=== PATIENT | male | born 1990 | race African-American/Black ===

== ENCOUNTER 2017-08-24 16:23 | Emergency (ER) | payer OTHER ==
[~2017-08-24] VITALS: Ht 182.9 cm; Wt 81.6 kg
[2017-08-24] MEDS ORDERED: Mylanta II UD 30ml ORAL ONE (16:45)
[2017-08-24] MEDS ORDERED: Lidocaine 2% Visc 15ml soln ORAL ONE (16:45)
[2017-08-24] MEDS ORDERED: Dicyclomine HCl 10mg/5ml oral soln ORAL ONE (16:45)
[2017-08-24] MEDS ORDERED: PEPCID40 MG PO (17:19)
[2017-08-24] MEDS ORDERED: ZOFRAN ODT4 MG ORAL (17:19)
[2017-08-24 17:22] VITALS: BP 138/88
[2017-08-24 17:25] VITALS: BP 137/78
--- NOTE | 2017-08-24 17:52 | Emergency Room Report ---
History of Present Illness General Chief Complaint: Abdominal Pain Source: Patient Present Illness HPI 26YOM [employer] patient with left sided abd pain, nausea/vomiting after eating bbq chicken pizza and nachos/cheese earlier this morning Patient woke up from nap with abd pain, vomiting Improved symptoms after vomiting once Tolerating PO in ED No foreign travel, sick contacts No other medical problems Allergies: Coded Allergies: No Known Allergies (Unverified , 08/24/17) Patient History Past Medical History: none Past Surgical History: none Pertinent Family History: none Social History: Denies: smoking, alcohol use, drug use Immunizations: UTD Reviewed Nursing Documentation: PMH: Agreed, PSxH: Agreed Nursing Documentation-PMH Hx Cardiac Problems: No Hx Hypertension: No Hx Pacemaker: No Hx Asthma: No Hx COPD: No Hx Diabetes: No Hx Cancer: No Hx Gastrointestinal Problems: No Hx Dialysis: No History Of Psychiatric Problem: No Hx Neurological Problems: No Hx Cerebrovascular Accident: No Hx Seizures: No Review of Systems All Other Systems: negative except mentioned in HPI Physical Exam Vital Signs Date Time Temp Pulse Resp B/P (MAP) Pulse Ox O2 Delivery O2 Flow Rate FiO2 08/24/17 16:28 97.9 63 19 160/98 99 Room Air Sp02 EP Interpretation: reviewed, normal General Appearance: normal inspection, well appearing, no apparent distress, alert, GCS 15, non-toxic Head: normocephalic, atraumatic Eyes: bilateral eye PERRL, bilateral eye EOMI ENT: normal ENT inspection, hearing grossly normal, normal voice Neck: normal inspection, full range of motion, supple, no bony tend Respiratory: normal inspection, lungs clear, normal breath sounds, no respiratory distress, no retraction, no wheezing Cardiovascular #1: regular rate, rhythm, no edema Gastrointestinal: normal inspection, normal bowel sounds, non tender, soft, no guarding, no hernia Genitourinary: no CVA tenderness Musculoskeletal: normal inspection, back normal, normal range of motion, Flaco' s Sign negative Neurologic: normal inspection, alert, oriented x3, responsive, nuclear station operator III-XII nml as tested, motor strength/tone normal, speech normal Psychiatric: normal inspection, judgement/insight normal, mood/affect normal Skin: normal inspection, normal color, no rash Lymphatic: normal inspection Medical Decision Making Diagnostic Impression: Primary Impression: Food poisoning Qualified Codes: T62.91XA - Toxic effect of unspecified noxious substance eaten as food, accidental (unintentional), initial encounter ER Course Likely acute gastroenteritis/food poisoning VSS. Afebrile No focal abd ttp Was given OTC zofran, tolerated PO Then given GI Cocktail with improvement in symptoms Low suspicion for acute bacterial/surgical process requiring additional lab work , imaging, admission and/or surgical evaluation at this time given well appearing, non-focal abd on serial exam, stable vital signs, and tolerating PO. In shared decision making process with patient, understands to return to ER for worsening symptoms and to followup with PMD in reasonable amount of time, 2-3 days. Last Vital Signs Date Time Temp Pulse Resp B/P (MAP) Pulse Ox O2 Delivery O2 Flow Rate FiO2 08/24/17 17:25 137/78 08/24/17 17:22 97.9 59 19 99 Room Air Status: improved Disposition: HOME, SELF-CARE Condition: Stable Scripts Ondansetron Odt* (ZOFRAN ODT*) 4 Mg Tab.rapdis 4 MG ORAL Q8H Y for Nausea & Vomiting for 3 Days, #10 TAB 0 Refills Prov: PASQUALE OROPEZA M.D. 08/24/17 Famotidine (PEPCID) 40 Mg Tablet 40 MG PO DAILY for 7 Days, #7 TAB 0 Refills Prov: PASQUALE OROPEZA M.D. 08/24/17 Referrals: [employer] [facility],REFERRIN (PCP) Patient Instructions: Viral Gastroenteritis, Adult Additional Instructions: - Drink water/slava amara ONLY today - Start bland food tomorrow, crackers, chicken broth ONLY until you feel completel better - Take Pepcid 40mg each morning for 7 days or until you feel better - Take zofran as needed for nausea - Follow up with your PRIMARY DOCTOR in 2-3 days as needed - Return to ER for severe abdominal pain located on ONE side of your abdomen, fever/chills, vomiting that do NOT resolve with medication PASQUALE OROPEZA M.D. Aug 24, 2017 17:52
== END 2017-08-24 17:25 | disposition home or self-care (01) ==
LOC: EMR 17:23
DX: T62.91XA Toxic effect of unspecified noxious substance eaten as food, accidental (unintentional), initial encounter (principal); Y92.9 Unspecified place or not applicable
CPT/HCPCS: 99284